=== PATIENT | female | born 1955 | race Caucasian/White ===

== ENCOUNTER 2020-05-23 20:41 | Emergency (ER) | payer OTHER ==
[~2020-05-23] VITALS: Ht 157.5 cm; Wt 74.2 kg
--- NOTE | 2020-05-23 21:34 | NUR ---
PATIENT STATES THAT SHE BEGAN FEELING POORLY 12/6, RECOVERED TO NEAR NORMAL STATUS. BEGAN FEELING INCREASING FATIGUE, COUGH, HEADAHCE, SHORTNESS OF BREATH WITHOUT ACTIVITY APPROXIMATELY 2 DAYS AGO. UNAWARE OF POSITIVE COVID CONTACTS, REPORTS WITH SAME SYMPTOMS.
[2020-05-23 22:35] LABS: BASOPHILS % (AUTO) 1 % (0-1); EOSINOPHILS % (AUTO) 1 % (1-7); LYMPHOCYTES % (AUTO) 27 % (22-44); MEAN CORPUSCULAR HEMOGLOBIN 30.3 pg (27.0-34.8); MEAN CORPUSCULAR HGB CONC 33.8 g/dL (32.4-35.8); MEAN PLATELET VOLUME 6.7 fL (7.4-10.4); MONOCYTES % (AUTO) 11 % (2-9); NEUTROPHILS % (AUTO) 60 % (42-75); PLATELET COUNT 238 x10^3/uL (130-400); RED BLOOD COUNT 4.48 x10^6/uL (3.82-5.3); RED CELL DISTRIBUTION WIDTH 12.7 % (9.6-15.2)
[2020-05-23 22:39] LABS: MD NO
[2020-05-23 22:48] LABS: ALANINE AMINOTRANSFERASE 37 U/L (12-78); ALBUMIN 3.8 g/dL (3.4-5.0); ANION GAP 5 mmol/L (5-15); CALCIUM 8.7 mg/dL (8.5-10.1); CHLORIDE 103 mmol/L (98-107); CREATININE 0.75 mg/dL (0.55-1.02)
[2020-05-23 22:50] LABS: ALKALINE PHOSPHATASE 97 U/L (45-117); BILIRUBIN,TOTAL 0.4 mg/dL (0.2-1.0); TOTAL PROTEIN 7.4 g/dL (6.4-8.2)
[2020-05-23 23:01] VITALS: BP 136/77
--- NOTE | 2020-05-23 23:02 | NUR ---
PATIENT RESTING ON BED WITH EYES CLOSED, NAD, WILL CONTINUE TO MONITOR.
== END 2020-05-23 23:46 | disposition home or self-care (01) ==
LOC: ED 22:21
DX: U07.1 COVID-19 (principal); B34.9 Viral infection, unspecified; R51.9 Headache, unspecified; R06.02 Shortness of breath
CPT/HCPCS: 71045; 80053; 85025; 87635; 99284

== ENCOUNTER 2020-06-19 19:44 | Emergency (ER) | payer OTHER ==
[~2020-06-19] VITALS: Ht 157.5 cm; Wt 74.6 kg
--- NOTE | 2020-06-19 20:08 | NUR ---
Lab at bedside.
[2020-06-19 20:19] LABS: BASOPHILS % (AUTO) 1 % (0-1); EOSINOPHILS % (AUTO) 3 % (1-7); LYMPHOCYTES % (AUTO) 39 % (22-44); MEAN CORPUSCULAR HEMOGLOBIN 31.1 pg (27.0-34.8); MEAN CORPUSCULAR HGB CONC 34.4 g/dL (32.4-35.8); MONOCYTES % (AUTO) 6 % (2-9); NEUTROPHILS % (AUTO) 51 % (42-75); PLATELET COUNT 282 x10^3/uL (130-400); RED BLOOD COUNT 4.57 x10^6/uL (3.82-5.3); RED CELL DISTRIBUTION WIDTH 13.3 % (9.6-15.2)
[2020-06-19 20:20] LABS: MD NO
[2020-06-19 20:30] LABS: ALANINE AMINOTRANSFERASE 46 U/L (12-78); ALBUMIN 4.1 g/dL (3.4-5.0); ANION GAP 4 mmol/L (5-15); CHLORIDE 106 mmol/L (98-107)
[2020-06-19 20:34] LABS: ALKALINE PHOSPHATASE 125 U/L (45-117); BILIRUBIN,TOTAL 0.4 mg/dL (0.2-1.0); TOTAL PROTEIN 7.5 g/dL (6.4-8.2); TROPONIN I < 0.015 ng/mL (0.000-0.045)
[2020-06-19] MEDS ORDERED: DEXAMETHASONE 4 MG TABLET ONE (21:37)
[2020-06-19 21:41] VITALS: BP 107/77
[2020-06-19] MEDS ORDERED: DEXAMETHASONE 4 MG TABLET PO ONE (22:00)
== END 2020-06-19 21:56 | disposition home or self-care (01) ==
LOC: ED 21:30
DX: U07.1 COVID-19 (principal); J06.9 Acute upper respiratory infection, unspecified; B34.9 Viral infection, unspecified; R94.31 Abnormal electrocardiogram [ECG] [EKG]
CPT/HCPCS: 36415; 71045; 80053; 84484; 85025; 93005; 99285